=== PATIENT | female | born 1975 | race Two or more races ===

== ENCOUNTER → 2019-10-01 | Outpatient (CLI) | payer BC ==
[~2019-10-01] MED LIST: CIPR500 PO; HYDACE5 PO; POTCHL10ER PO
== END | disposition home or self-care (01) ==
LOC: LAB EV 08:24 → LAB SHORT 08:24
DX: N39.0 Urinary tract infection, site not specified (principal)
CPT/HCPCS: 87077; 87086; 87186

== ENCOUNTER → 2019-12-24 | Outpatient (CLI) | payer BC ==
[2019-12-25 14:09] LABS: HPV 16 Negative (Negative); HPV 18 Negative (Negative); HPV OTHER HR TYPES Negative (Negative)
== END ==
LOC: LAB SHORT 13:04 → LAB 13:04
PROVIDERS: Student in an Organized Health Care Education/Training Program
DX: Z01.419 Encounter for gynecological examination (general) (routine) without abnormal findings (principal)
CPT/HCPCS: 87624; G0145

== ENCOUNTER → 2024-07-10 | Outpatient (CLI) | payer BC | END | disposition home or self-care (01) | LOC: LAB 16:34 → LAB SHORT 16:34 | DX: R30.0 Dysuria (principal) | CPT/HCPCS: 87077; 87086; 87186 ==

== ENCOUNTER → 2024-10-09 | Outpatient (CLI) | payer BC | END | disposition home or self-care (01) | LOC: LAB SHORT 13:36 → LAB 13:36 | DX: N30.01 Acute cystitis with hematuria (principal) | CPT/HCPCS: 87077; 87086; 87186 ==

== ENCOUNTER 2025-02-13 11:09 | Day surgery (SDC) | payer BC ==
[2025-02-13] VITALS (7 sets, daily range): BP systolic 99–133; BP diastolic 57–81
[~2025-02-13 11:09] MED LIST changes: +FISH OIL 1,0001 EA10 PO; +MULTI-VITAMIN1 EAC2 PO
[2025-02-13] MEDS ORDERED: CeFAZolin Sodium 2,000 MG in NS 100 ML IV SCH (11:45)
[2025-02-13] MEDS ORDERED: FentaNYL Citrate 50 MCG/ML 2 ML Injection ONE (12:32)
[2025-02-13] MEDS ORDERED: Bupivacaine HCl 2.5 MG/ML 10ML P/F Injection ONE (12:35)
[2025-02-13] MEDS ORDERED: Lidocaine HCL 1% 10 ML MDV ONE (12:35)
[2025-02-13] MEDS ORDERED: Ondansetron HCl 2 MG / ML 2ML Vial IV PRN (12:40)
[2025-02-13] MEDS ORDERED: HYDROmorphone HCl/Pf 1MG SYR IV PRN ×2 (12:40)
[2025-02-13] MEDS ORDERED: FentaNYL Citrate 50 MCG/ML 2 ML Injection IV PRN ×2 (12:40)
[2025-02-13] MEDS ORDERED: Phenylephrine HCl 100 MCG/ML-NS 10MLSYR (1MG/10ML) ONE (12:56)
[2025-02-13] MEDS ORDERED: Dexamethasone Sod Phos 10 MG/ML 1ML VIAL ONE (13:05)
[2025-02-13] MEDS ORDERED: Ondansetron HCl 2 MG / ML 2ML Vial ONE (13:05)
[2025-02-13] MEDS ORDERED: Ketorolac Tromethamine 30mg Vial ONE (13:05)
[2025-02-13] MEDS ORDERED: HYDROcodone 5-APAP 325 TAB PO PRN (14:10)
--- NOTE | 2025-02-13 14:29 | NUR ---
Discharge instructions reviewed with patient. Patient verbalizes understanding. Copy given to patient to take home. Discharged via wheelchair to private car for ride home. Patient States Post-Procedure ride home has been arranged.
== END 2025-02-13 14:51 | disposition home or self-care (01) ==
LOC: ORSCSDS 11:09 → ORSCMMR 11:11 → ORSCSDS 14:51
PROVIDERS: Orthopaedic Surgery
PROC: 01N50ZZ Release Median Nerve, Open Approach (ICD-10-PCS; principal; 2025-02-13 13:00)
DX: G56.02 Carpal tunnel syndrome, left upper limb (principal)
CPT/HCPCS: J0690; J1100; J1885; J2003; J2371; J2405; J2704; J3010; J7120